=== PATIENT | male | born 1975 | race Hispanic/Latino ===

== ENCOUNTER → 2018-06-07 | Day surgery (SDC) | payer OTHER ==
[~2018-06-07] MED LIST: ADVIL200 MG PO; FENTANYL CITRATE/PF 100MCG/2 ML INJ ONE; LIDOCAINE HCL 2% LOCAL INJ 5 ML SDV VIAL INJ ONE; METFORMIN HCL500 MG PO; MIDAZOLAM HCL 2 MG/2 ML VIAL ONE; PROPOFOL IV EMULSION 10 MG/ML 50 ML VIAL ONE; ZANTAC150 MG PO
[2018-06-07 12:20] VITALS: BP 106/57
--- NOTE | 2018-06-07 16:50 | Operative Report ---
DATE OF PROCEDURE: 06/07/2018 SURGEON: Rajesh Soto MD PROCEDURE: Esophagogastroduodenoscopy with biopsies and colonoscopy with polypectomy. INDICATION FOR EGD: Heartburn, indigestion. INDICATION FOR COLONOSCOPY: Lower abdominal pain. MEDICATION: The patient was done under MAC, please see anesthesiologist's note. PROCEDURE IN DETAIL: With the patient in left lateral decubitus position, flexible fiberoptic Olympus gastroscope was introduced into the esophagus under direct visualization without any difficulty. An approximately 8 mm submucosal nodule was noted at approximately 26 cm from the incisors and that was biopsied. Mucosa overlying the distal esophagus revealed some patchy areas of erythema. The scope was then advanced with ease into the stomach and mucosa overlying the antrum and the body revealed some patchy erythema and low-grade to moderate edema and biopsies were obtained and sent to stain for H pylori. Two submucosal nodules were noted in the midbody along the anterior wall and those were biopsied. There was an extrinsic compression against the posterior wall midbody of the stomach. The pylorus was of normal contour and shape, it was intubated with ease and the scope was advanced all the way to the second portion of the duodenum. Biopsies were obtained from the proximal second portion and the duodenal bulb to rule out sprue. The scope was then withdrawn back into the stomach and retroflexed and there was some focal nodularity noted just below the cardia and that was biopsied. The fundus overall appeared to be within normal limits. The scope was then straightened out, it was subsequently withdrawn. The patient tolerated the procedure well. IMPRESSION: 1. Submucosal nodule in cervical esophagus, biopsied. 2. Distal esophagitis, mild. 3. Focal nodularity just below cardia, biopsied. 4. Gastritis, biopsied, biopsies sent to stain for H pylori. 5. Submucosal nodules in midbody anterior wall, biopsied. 6. Extrinsic compression posterior wall, body of stomach. 7. Rule out sprue. PLAN: Follow up histology. Initiate Protonix 40 mg one p.o. q.a.m. a.c. PROCEDURE IN DETAIL: The patient was then turned around. After adequate lubrication of the anal canal, a flexible fiberoptic Olympus colonoscope was inserted into the rectum with ease and advanced all the way to the cecum. One polyp was removed from the cecum per the cold biopsy forceps. The ascending colon appeared to be within normal limits. One polyp was hot biopsied and polypectomy site was hemoclipped and one polyp was removed per snare electrocautery in the transverse colon. The descending colon appeared to be within normal limits. One polyp was hot biopsied and two polyps were snared from the sigmoid colon. Two polyps were hot biopsied from the rectum. The scope was then retroflexed into the distal rectum and small internal hemorrhoids were noted, none of which was actively bleeding. The scope was then straightened out, it was subsequently withdrawn. The patient tolerated procedure well. IMPRESSION: 1. Cecal polyp removed per cold biopsy forceps. 2. Transverse colon polyps x2, one hot biopsied and hemoclipped and one snared. 3. Sigmoid colon polyps x3, one hot biopsied and two snared. 4. Rectal polyps x2, hot biopsied. 5. Internal hemorrhoids, none actively bleeding. PLAN: Follow up histology. Initiate high-fiber, low-fat diet. Initiate high-fiber supplement. The patient might benefit from a followup colonoscopy in 3 years. Rajesh Soto MD [facility] [place] /[id number] cc: Aaliyah Kaye MD
== END | disposition home or self-care (01) ==
LOC: OR 07:17
PROVIDERS: ATTEND Internal Medicine Gastroenterology
DX: D12.5 Benign neoplasm of sigmoid colon (principal); K29.50 Unspecified chronic gastritis without bleeding; K62.1 Rectal polyp; B96.81 Helicobacter pylori [H. pylori] as the cause of diseases classified elsewhere; K20.9 Esophagitis, unspecified; K22.8 Other specified diseases of esophagus; K31.89 Other diseases of stomach and duodenum; K64.8 Other hemorrhoids; K21.9 Gastro-esophageal reflux disease without esophagitis; E11.9 Type 2 diabetes mellitus without complications; N50.89 Other specified disorders of the male genital organs; F17.210 Nicotine dependence, cigarettes, uncomplicated; Z71.6 Tobacco abuse counseling; Z01.810 Encounter for preprocedural cardiovascular examination; Z79.84 Long term (current) use of oral hypoglycemic drugs; Z68.33 Body mass index [BMI] 33.0-33.9, adult
CPT/HCPCS: 36415; 43239; 45380; 45384; 45385; 82948; 93005; J2001; J2250; J2704; 45378

== ENCOUNTER → 2018-07-27 | Outpatient (CLI) | payer OTHER ==
[~2018-07-27] MED LIST changes: -FENTANYL CITRATE/PF 100MCG/2 ML INJ ONE; +IOPAMIDOL 370 MG/ML 200 ML INFUS..BTL INJ ONE; -LIDOCAINE HCL 2% LOCAL INJ 5 ML SDV VIAL INJ ONE; -MIDAZOLAM HCL 2 MG/2 ML VIAL ONE; -PROPOFOL IV EMULSION 10 MG/ML 50 ML VIAL ONE; +SODIUM CHLORIDE 0.9% 50ML 50 ML ONE
[2018-07-27 08:22] LABS: BLOOD UREA NITROGEN 17 mg/dL (7-26); BUN/CREATININE RATIO 22 (6-25); CREATININE, SERUM 0.77 mg/dL (0.72-1.25); EST GLOMERULAR FILTRATION RATE > 60 ML/MIN (60-)
--- NOTE | 2018-07-27 09:54 | Diagnostic Imaging Report ---
EXAM: CT ABDOMEN with IV CONTRAST DATE: 07/27/2018 Time stamp on Exam: 8:52 AM INDICATION: Abdominal pain COMPARISON: None TECHNIQUE: The abdomen was scanned using a multidetector helical scanner. Coronal and sagittal reformations were obtained. Routine protocol performed. Technique modification was utilized to maintain the lowest dose possible to the patient. IV Contrast: 100 cc of Isovue-370 Oral Contrast: None Radiation Dose: Total DLP 370.42 mGy*cm Estimated effective dose: DLP x 0.015 x size factor FINDINGS: LOWER THORAX: Nodular opacities in the left lung base likely secondary to scarring. LIVER: No masses with diffuse hepatic steatosis. BILIARY: The gallbladder is unremarkable. No ductal dilatation. SPLEEN: No masses with 2 splenules noted medial to the spleen. PANCREAS: No masses ADRENALS: No nodules KIDNEYS: Symmetric perfusion. No enhancing masses. No hydronephrosis. Small left upper pole renal cyst. GI TRACT: No distention, wall thickening or evidence of obstruction. VESSELS: There are 2 renal arteries on each side. PERITONEUM/RETROPERITONEUM: No free air or fluid LYMPH NODES: No lymphadenopathyy SOFT TISSUES: Unremarkable BONES: No suspicious bone lesions. Degenerative changes of the spine. IMPRESSION: 1. No acute abnormality within the abdomen. 2. Diffuse hepatic steatosis. Signed by: Dr. Samy Rodriguez DO on 07/27/2018 9:51 AM
== END ==
LOC: CT 07:29
PROVIDERS: ATTEND Internal Medicine Gastroenterology
CPT/HCPCS: 36415; 74160; 82565; 84520; Q9967

== ENCOUNTER → 2019-10-21 | Outpatient (CLI) | payer OTHER ==
[~2019-10-21] MED LIST changes: -IOPAMIDOL 370 MG/ML 200 ML INFUS..BTL INJ ONE; -SODIUM CHLORIDE 0.9% 50ML 50 ML ONE
--- NOTE | 2019-10-21 08:58 | Diagnostic Imaging Report ---
EXAM: US GALLBLADDER DATE: 10/21/2019 8:21 AM INDICATION: ^[id number] ^[id number] ^EPIG PAIN COMPARISON: None TECHNIQUE: Transverse and longitudinal cannon scale and color doppler sonographic images of the right upper quadrant were obtained. FINDINGS: LIVER 16.6 cm in the right midclavicular line. Liver is diffusely echogenic with normal contour, no masses. GALLBLADDER No gallbladder wall thickening, distension, stone, or pericholecystic fluid. Negative reported sonographic Draper's sign. BILE DUCTS No intra nor extra-hepatic biliary dilation. Common bile duct measures 0.3cm PANCREAS: Visualized portions are normal. RIGHT KIDNEY: 12.3 cm Echogenicity: Normal Collecting System: No hydronephrosis Stones: None Cyst/Mass: None VESSELS: Aorta: Visualized portions are within normal size limits Inferior Vena Cava: Visualized portions are normal Main Portal Vein: 1.3 cm, normal size with hepatopetal flow. FREE FLUID: None IMPRESSION: 1. Negative for cholelithiasis or biliary dilatation. 2. Hepatic steatosis. Signed by: Doc Sam MD on 10/21/2019 8:55 AM
--- NOTE | 2019-10-21 17:40 | Diagnostic Imaging Report ---
Hepatobiliary Scan with Gallbladder Ejection Fraction Reason for exam: Epigastric pain with bloating Report: Following intravenous administration of 6.6 millicuries of Tc-99m mebrofenin, dynamic images of the abdomen in the anterior projection were obtained through 34 minutes. Sincalide (CCK analog) 1.8 micrograms was administered intravenously over 30 minutes with additional imaging for determination of gallbladder ejection fraction. Perfusion to the liver is normal. Extraction of tracer from the blood pool by the liver parenchyma is normal. Tracer is seen promptly within the biliary tract. The gallbladder begins to fill by 20 minutes post-injection of tracer and fills adequately. Tracer is seen in the small bowel by 9 minutes. The gallbladder ejection fraction with administration of sincalide is 80% (normal greater than 40%). Impression: 1. Filling of the gallbladder excludes the diagnosis of acute cystic duct obstruction/acute cholecystitis. 2. Normal gallbladder ejection fraction of 80% does not support the clinical diagnosis of chronic cholecystitis/gallbladder dyskinesia. Signed by: Dr. Shahla Rosenberg M.D. on 10/21/2019 5:37 PM
== END ==
LOC: US 07:50
PROVIDERS: ATTEND Internal Medicine Gastroenterology
DX: R10.13 Epigastric pain (principal)
CPT/HCPCS: 76705; 78227; A9537